=== PATIENT | male | born 1990 | race Caucasian/White ===

== ENCOUNTER 2018-11-28 18:47 | Emergency (ER) | payer SELFPAY ==
[~2018-11-28] VITALS: Ht 167.6 cm; Wt 54.4 kg
[2018-11-28] MEDS ORDERED: HYDROcodone/APAP 5/325MG 1 TAB TABLET PO ONE (19:30)
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
[2018-11-28 21:11] VITALS: BP 116/67
[2018-11-28] MEDS ORDERED: AMOX875T PO (21:24)
[2018-11-28] MEDS ORDERED: HYDR-2761 PO (21:24)
== END 2018-11-28 21:34 | disposition home or self-care (01) ==
LOC: ER 18:47
DX: S02.69XA Fracture of mandible of other specified site, initial encounter for closed fracture (principal); K02.9 Dental caries, unspecified; F17.210 Nicotine dependence, cigarettes, uncomplicated; Y04.8XXA Assault by other bodily force, initial encounter; Y93.89 Activity, other specified; Y92.009 Unspecified place in unspecified non-institutional (private) residence as the place of occurrence of the external cause; Y99.8 Other external cause status
CPT/HCPCS: 70486; 99284